=== PATIENT | female | born 1980 | race Caucasian/White ===

== ENCOUNTER 2017-12-01 14:08 | Inpatient (IN) ==
[2017-12-01] MEDS ORDERED: Ampicillin/Sulbactam 3,000 MG in 0.9 % Sodium Chloride Mini Bag 100 ML IVPB ONE (15:04)
--- NOTE | 2017-12-01 15:10 | Emergency Department Note ---
Disposition Clinical Impression: Osteomyelitis of finger of right hand, Cellulitis of finger of right hand, Tobacco abuse Disposition: Admitted As Inpatient Condition: Good Time of Disposition: 15:13 Extremity Problem HPI - General Chief complaint: ED Extremity Problem,Nontraumatic Stated complaint: Right index finger injury Time Seen by Provider: 12/01/17 14:31 Source: patient Limitations: no limitations Nursing Notes Reviewed: Yes Vital Signs Reviewed: Yes - History of Present Illness HPI Narrative: 36-year-old female presents ED because of pain to her right index finger. Heart 13 days ago she was bitten by her pet cat on the tip of the index finger. She was prescribed antibiotics but did not get them filled claiming inadequate resources. She later presented to the emergency department and had purulent drainage expressed from here. She was referred to orthopedics and saw Dr. Khanna in the office today. X-rays were suggestive of osteomyelitis. He recommended she be admitted to the hospital on IV antibiotics with PICC line insertion and may need to have surgical debridement. Pt Subjective Complaint: extremity pain Onset (ago): day(s) Consistency: constant Injury Location: right Pain Scale: 8 Quality: aching Radiation: distal Improves with: nothing Worsens with: nothing Associated symptoms: Reports: denies other symptoms - Related Data Home Medications Medication Instructions Recorded Confirmed Clindamycin HCl [Cleocin HCl] 300 mg PO Q8H 12/01/17 12/01/17 HYDROcodone/Acet 5/325 mg [[place] 1 tab PO Q6H PRN 12/01/17 12/01/17 5-325 mg] Allergies Allergy/AdvReac Type Severity Reaction Status Date / Time No Known Allergies Allergy Verified 12/01/17 15:05 All systems ED: reviewed and negative except as stated. Review of Systems: As Per HPI Past Medical History - Past Medical History Attestation: Yes The following information was validated with the patient. Medical history: Reports: HIV/AIDS Psychiatric history: Reports: no psych history - Social History Smoking Status: Current every day smoker Physical Exam - General Limitations: no limitations General appearance: alert, in no apparent distress - Head Head exam: atraumatic, normocephalic - Eye Eye exam: Present: normal appearance - ENT ENT exam: normal exam - Neck Neck exam: Present: normal inspection, full ROM - Chest Chest inspection: Present: normal inspection - Respiratory Respiratory exam: Present: normal lung sounds bilaterally - Cardiovascular Cardiovascular exam: Present: regular rate, normal rhythm - Extremities Exam Extremities exam: Present: other (Erythema and tenderness of the distal phalange of the right index finger. Skin overlying the volar pad is black.) - Back Exam Back exam: Absent: tenderness - Neurological Exam Neurological exam: Present: alert, oriented X3 - Psychiatric Psychiatric exam: Present: normal affect - Skin Skin exam: Present: warm, dry Course - Reevaluation(s) Reevaluation #1: A PICC line will be inserted, started on IV Unasyn and admitted. alecia Grande for clarification. Time: 15:12 Reevaluation #2: Discussed patient with Dr. Khanna, he does not plan on doing surgical debridement. Due to patient's insurance situation, she is unable to get iv abx outpatient. Patient was accepted by Dr. Aguirre, he requested to have CBC , BMP, ESR, CRP. Time: 15:53 Vital Signs Temperature 98.1 F 12/01/17 14:11 Pulse Rate 78 12/01/17 14:11 Respiratory Rate 18 12/01/17 14:11 Blood Pressure 110/72 12/01/17 14:11 O2 Sat by Pulse Oximetry 98 12/01/17 14:11 Temperature 98.7 F 12/01/17 17:27 Pulse Rate 56 12/01/17 17:27 Respiratory Rate 14 12/01/17 17:27 Blood Pressure 117/75 12/01/17 17:27 O2 Sat by Pulse Oximetry 98 12/01/17 17:27 Oxygen Delivery Oxygen Delivery Room Air Extremity Problem, Nontraumati - Lab Data Result diagrams: 12/01/17 15:40 12/01/17 15:21 Lab Results 12/01/17 12/01/17 12/01/17 Range/Units 15:21 15:40 15:40 WBC 7.4 (4.3-11.1) K/mcL RBC 5.23 H (3.82-4.97) M/mcL Hgb 15.8 H (11.5-15.4) g/dL Hct 47.7 H (35.3-44.9) % MCV 91.2 (83.0-100.0) fL MCH 30.2 (28.0-33.3) pg MCHC 33.1 (31.6-35.5) g/dL RDW 12.1 (11.5-14.5) % Plt Count 192 (140-400) K/mcL MPV 10.8 (9.4-12.4) fL Immature Gran % 0.5 (0-4) % Seg Neutrophils % 56.6 % Lymphocytes % 34.9 % Monocytes % 6.0 % Eosinophils % 1.6 % Basophils % 0.4 % Neutrophils # 4.2 (1.6-8.9) K/mcL Lymphocytes # 2.6 (0.6-4.6) K/mcL Monocytes # 0.4 (0.0-1.3) K/mcL Eosinophils # 0.1 (0.0-0.6) K/mcL Basophils # 0.0 (0.0-0.2) K/mcL ESR 8 (0-15) mm/hr Sodium 137 (136-145) mEq/L Potassium 3.5 (3.5-5.1) mEq/L Chloride 103 (98-107) mEq/L Carbon Dioxide 29 (23-29) mEq/L BUN 9 (6-20) mg/dL Creatinine 0.84 (0.60-1.20) mg/dL Est GFR ( Amer) > 60 (> 60) Est GFR (Non-Af Amer) > 60 (> 60) BUN/Creatinine Ratio 11 (6-26) Glucose 96 (70-105) mg/dL Calculated Osmolality 283 (280-300) Calcium 9.9 (8.6-10.3) mg/dL C-Reactive Protein < 5 (Less than 10) mg/L
[2017-12-01 15:50] LABS: Basophils % 0.4 %; Eosinophils # 0.1 K/mcL (0.0-0.6); Eosinophils % 1.6 %; Hematocrit 47.7 % (35.3-44.9); Hemoglobin 15.8 g/dL (11.5-15.4); Immature Granulocytes % 0.5 % (0-4); Lymphocytes # 2.6 K/mcL (0.6-4.6); Lymphocytes % 34.9 %; Mean Corpuscular HGB Conc 33.1 g/dL (31.6-35.5); Mean Corpuscular Hemoglobin 30.2 pg (28.0-33.3); Mean Corpuscular Volume 91.2 fL (83.0-100.0); Mean Platelet Volume 10.8 fL (9.4-12.4); Monocytes # 0.4 K/mcL (0.0-1.3); Neutrophils # 4.2 K/mcL (1.6-8.9); Platelet Count 192 K/mcL (140-400); Red Blood Count 5.23 M/mcL (3.82-4.97); Red Cell Distribution Width 12.1 % (11.5-14.5); Segmented Neutrophils % 56.6 %
[2017-12-01] MEDS ORDERED: Naloxone 0.4 MG/ML INJ IVP PRN (15:52)
[2017-12-01 16:12] LABS: BUN/Creatinine Ratio 11 (6-26); Blood Urea Nitrogen 9 mg/dL (6-20); C-Reactive Protein < 5 mg/L (Less than 10); Calcium 9.9 mg/dL (8.6-10.3); Carbon Dioxide 29 mEq/L (23-29); Chloride 103 mEq/L (98-107); Glucose 96 mg/dL (70-105); Osmolality,Calculated 283 (280-300); Potassium 3.5 mEq/L (3.5-5.1); Sodium 137 mEq/L (136-145); eGFR For African Americans > 60 (> 60); eGFR For Non-African Americans > 60 (> 60)
[2017-12-01] MEDS ORDERED: Ondansetron 4 MG/2 ML VIAL IVP PRN (16:35)
[2017-12-01] MEDS ORDERED: Acetaminophen 325 MG TABLET PO PRN (16:35)
--- NOTE | 2017-12-01 16:47 | Internal Med History&Physical ---
Date of Encounter: 12/01/17 Time of Encounter: 16:20 Assessment and Plan (1) Osteomyelitis of finger of right hand Current visit: Yes Status: Acute Admit the pt into Med Surg Reviewed X ray report Showed Rt 2nd distal phalangeal tuft fracture and concerning for osteomyelitis Started on empirical abx Unasyn Blood cx drawn ESR and CRP - WNL ID consulted will obtain records from PCP office - ?? Wound cx Talked to Ortho Dr. Grande - will see the pt later today continue symptomatic and supportive care (2) Cellulitis of finger of right hand Current visit: Yes Status: Acute (3) Anxiety Current visit: Yes Status: Acute on Ativan PRN (4) Tobacco abuse Current visit: Yes Status: Acute counseled to quit on nicotine patch Internal Medicine - H&P: HPI Chief complaint: Rt index finger osteomyelitis Admitted From: Emergency Dept Plans for Post Hospital Care: Home History of present illness: Ms. Canales is a 36 year old female with no known significant past medical history who was bitten by On her right index finger on 11/17/2017 since and patient noticed worsening right index finger swelling, tenderness and plus collection. Patient was admitted at [facility] last week treated with IV antibiotic and send her home on oral antibiotic. Also patient was seen by her primary care doctor who tried to do I & D of the right index finger almost 3 times, however her right index finger swelling, edema and tenderness seems to be worsening. Now she is not able to move or do any range of motion of the right index finger. PCP did refer the patient to orthopedics Dr. Grande, who did x-ray in his office showed right index finger osteomyelitis. He did send the patient to ER for PICC line placement and long-term IV antibiotic. Past Med Surg Social Fam HX - Past Medical History Medical history: HIV/AIDS Psychiatric history: no psych history - Past Surgical History Surgical History: no surgical history - Social History Smoking Status: Current every day smoker - Additional Family History Additional family history: Family hsitory reviewed and non contribuitory to current problem. Internal Medicine - H&P: Meds Clindamycin HCl [Cleocin HCl] 300 mg PO Q8H 12/01/17 [History] HYDROcodone/Acet 5/325 mg [[place] 5-325 mg] 1 tab PO Q6H PRN 12/01/17 [History] 3 Allergy/AdvReac Type Severity Reaction Status Date / Time No Known Allergies Allergy Verified 12/01/17 15:05 All Systems PM: A 10-system review of systems was performed and is negative for pertinent findings except as documented above in the HPI. Review of systems: All the systems are reviewed everything is benign except the systems and symptoms I mentioned in the history of present illness - Constitutional Vitals: Temp Pulse Resp BP Pulse Ox 98.1 F 80 14 119/80 97 12/01/17 14:11 12/01/17 16:14 12/01/17 16:14 12/01/17 16:14 12/01/17 16:14 General appearance: Present: A&O X 3, answers questions appropriately - Head Head exam: Present: atraumatic, normal inspection - Neck Neck exam general surgery: Present: supple - Respiratory Respiratory exam: Present: decreased breath sounds. Absent: rales, respiratory distress, rhonchi, wheezes - Cardiovascular Cardiovascular exam: Present: RRR, +S1, +S2. Absent: tachycardia - GI/Abdominal GI/Abdominal exam: Present: normal bowel sounds, soft. Absent: rebound, rigid, tenderness - Extremities Exam Extremities exam: Absent: calf tenderness, pedal edema, tenderness - Back Exam Back exam: Absent: CVA tenderness (L), CVA tenderness (R) - Neurological Exam Neurological exam: Present: alert, oriented X3 - Psychiatric Psychiatric exam: Present: normal affect, normal mood - Skin Skin exam: Absent: rash Internal Med - H&P Results - Labs CBC & Chem 7: 12/01/17 15:40 12/01/17 15:21
[2017-12-01] MEDS ORDERED: Ampicillin/Sulbactam 3,000 MG in 0.9 % Sodium Chloride Mini Bag 100 ML IVPB SCH (18:00)
[2017-12-01] MEDS: *HR* OxyCODONE/APAP 5/325 TABLET PO PRN (20:21)
[2017-12-02] MEDS: Ampicillin/Sulbactam 3,000 MG in 0.9 % Sodium Chloride Mini Bag 100 ML IVPB SCH ×3 (00:47→12:26)
[2017-12-02] MEDS: *HR* LORazepam 0.5 MG TABLET PO PRN ×2 (00:47→08:10)
[2017-12-02 03:45] LABS: Basophils # 0.1 K/mcL (0.0-0.2); Basophils % 0.8 %; Eosinophils # 0.2 K/mcL (0.0-0.6); Eosinophils % 3.3 %; Hematocrit 42.3 % (35.3-44.9); Hemoglobin 13.8 g/dL (11.5-15.4); Immature Granulocytes % 0.5 % (0-4); Lymphocytes # 3.5 K/mcL (0.6-4.6); Mean Corpuscular HGB Conc 32.6 g/dL (31.6-35.5); Mean Platelet Volume 11.5 fL (9.4-12.4); Monocytes # 0.4 K/mcL (0.0-1.3); Monocytes % 6.5 %; Neutrophils # 2.4 K/mcL (1.6-8.9); Platelet Count 184 K/mcL (140-400); Red Cell Distribution Width 12.3 % (11.5-14.5); Segmented Neutrophils % 35.9 %
[2017-12-02] MEDS: *HR* Enoxaparin 40 MG/0.4 ML SYRINGE SQ SCH (06:52)
--- NOTE | 2017-12-02 08:42 | Orthopedic Consult Note ---
<Catrina Victor Sanjay - Last Filed: 12/02/17 16:33> Date of Encounter: 12/02/17 Time of Encounter: 08:00 Assessment and Plan (1) Osteomyelitis of finger of right hand Current Visit: Yes Status: Acute Continue IV abx for osteomyelitis. ID consulted for further recommendations. No surgical intervention planned at this time. Elevate hand, ROM as tolerated. Pain control per hospitalist. Patient did note to me percocet made her drowsy and would like to switch to norco as the side effects are less. Office working to collect records from [facility] (original xrays on 11/21/17) and PCP Dr. Florez records who performed I&D in office. Patient denies any cultures being collected but will obtain records to confirm. UPDATE 16:15 - Dr. Grande discussed case with Dr. Oseguera who recommends I&D of finger with injection of rabies immune gamma globulin directly into finger site. I did discuss this procedure with the patient along with r/b/a. All questions were answered and patient expressed understanding. Consent was obtained, given to nurse Yuliet. Plan for procedure tomorrow afternoon. She is to be NPO after midnight tonight. History of Present Illness Chief complaint: right index finger pain/cat bite HPI: Ms. Canales is a 36 year old female who presented to [facility] yesterday with Dr. Grande for follow up after cat bite and was then sent to ER to be admitted for IV abx. Patient states she found a stray cat and took it home as it looked very sick/skinny and have possibly fleas. She tried to give the cat a bath and feed it bologna when the cat bit down on her finger and would not let go. She had to pry its mouth open to release her finger. This happened on 11/17/17. She went to [facility] on 11/19/17 where she was prescribed augmentin. Patient did not fill this as she states she could not afford it. She returned to same ER on 11/21/17 for worsening redness and swelling to finger and appears from ER records that she received a dose of unasyn and was able to get the augmentin filled around that time. She denies receiving any vaccines while in the ER. She then followed up with her PCP, Dr. Florez on 11/23/17 where he lanced the finger tip with a needle and apparently expressed much purulent fluid but did not obtain cultures at that time. Patient followed up again on 11/25/17 and was switched to clindamycin at that time but due to not improving was referred to Dr. Grande. Today, patient continues to c/o redness and swelling to distal index finger that she states has improved overnight after receiving IV abx. She states she has a little improvement in her motion at this time as well. Continues to have numbness and tingling to distal index finger. Denies any N/V, fever, chills, chest pain, SOB. Patient is right hand dominant. She does work at [employer]. Past Med Surg Social Fam HX - Past Medical History Medical history: HIV/AIDS Psychiatric history: no psych history - Past Surgical History Surgical History: no surgical history - Social History Smoking Status: Current every day smoker Packs per day: 1 Smokeless Tobacco Status: No Alcohol use: none Drug use: marijuana Medications and Allergies Clindamycin HCl [Cleocin HCl] 300 mg PO Q8H 12/01/17 [History] HYDROcodone/Acet 5/325 mg [[place] 5-325 mg] 1 tab PO Q6H PRN 12/01/17 [History] 3 Allergy/AdvReac Type Severity Reaction Status Date / Time No Known Allergies Allergy Verified 12/01/17 15:05 All Systems Reviewed: The remainder of the systems were reviewed and are negative - Constitutional Constitutional: as per HPI - Cardiovascular Cardiovascular: as per HPI - Respiratory Respiratory: as per HPI - Musculoskeletal Musculoskeletal: as per HPI Physical Exam - Constitutional Vitals: Temp Pulse Resp BP Pulse Ox 98.1 F 63 16 105/64 95 12/02/17 06:43 12/02/17 06:43 12/02/17 06:43 12/02/17 06:43 12/02/17 06:43 - Wrist & Hand right Location of pain: index finger (moderate swelling and erythema to IF distal phalanx with what appears to be a small hematoma on volar surface. There are multiple punctate areas over hand which patient states used to be small blisters , no blisters noted on exam at this time, resolved to dorsal side IF over PIPJ. No open wounds noted. Significant tenderness to distal IF with decreased sensation as well, patient would not allow testing cap refill due to pain. Full ROM at MCPJ, minimal AROM at PIPJ and no AROM at DIPJ. Full PROM achieved with minimal pain. ) Results - Labs Result Diagrams: 12/02/17 00:57 12/01/17 15:21 Labs: H & H 12/02/17 Range/Units 00:57 Hgb 13.8 D (11.5-15.4) g/dL Hct 42.3 (35.3-44.9) % All other labs normal. - Diagnostic results Wrist/Hand x-ray: report reviewed, image reviewed Wrist/Hand MRI: report reviewed, image reviewed Consult Discharge Plan - Plan Referrals: Jayesh Florez MD [Primary Care Provider] - Lele Clay [Family Provider] - - Attending Attestation Case and plan of care discussed with supervising phycision who was available for all aspects of care. <Corwin Grande - Last Filed: 12/03/17 08:00> Date of Encounter: 12/03/17 Assessment and Plan (1) Osteomyelitis of finger of right hand Current Visit: Yes Status: Acute The injury x-rays from [facility] did not show a fracture of the right index finger distal phalanx tuft. Most likely the fragmentation is from osteomyelitis and not a fracture. History of Present Illness HPI: Ms. Canales is a 36 year old female All Systems Reviewed: The remainder of the systems were reviewed and are negative Physical Exam - Constitutional Vitals: Temp Pulse Resp BP Pulse Ox 97.8 F 63 14 98/56 95 12/03/17 06:33 12/03/17 06:33 12/03/17 06:33 12/03/17 06:33 12/03/17 06:33 Results - Labs Result Diagrams: 12/02/17 00:57 12/01/17 15:21 Labs: All other labs normal.
--- NOTE | 2017-12-02 10:10 | Internal Med Progress Note ---
Date of Encounter: 12/02/17 Time of Encounter: 10:09 - Subjective Interval history: Assessment and Plan (1) Osteomyelitis of finger of right hand Current visit: Yes Status: Acute Admit the pt into Med Surg Reviewed X ray report Showed Rt 2nd distal phalangeal tuft fracture and concerning for osteomyelitis Started on empirical abx Unasyn Blood cx drawn ESR and CRP - WNL ID consulted (2) Cellulitis of finger of right hand Current visit: Yes Status: Acute (3) Anxiety Current visit: Yes Status: Acute on Ativan PRN (4) Tobacco abuse Current visit: Yes Status: Acute counseled to quit on nicotine patch - Constitutional Vitals: Temp Pulse Resp BP Pulse Ox 98.1 F 63 16 105/64 95 12/02/17 06:43 12/02/17 06:43 12/02/17 06:43 12/02/17 06:43 12/02/17 06:43 General appearance: Present: A&O X 3, answers questions appropriately - Head Head exam: Present: atraumatic, normocephalic - Eye Eye exam: Present: PERRL, conjuntiva pink, sclera anicteric Pupils: Present: PERRL - Neck Neck exam general surgery: Present: supple, trachea midline. Absent: lymphadenopathy - Respiratory Respiratory exam: Present: CTAB. Absent: accessory muscle use, rales, rhonchi, wheezes - Cardiovascular Cardiovascular exam: Present: RRR, +S1, +S2. Absent: diastolic murmur, gallop, rubs, systolic murmur - GI/Abdominal GI/Abdominal exam: Present: normal bowel sounds, soft, no peritoneal signs. Absent: distended, tenderness - Extremities Exam Extremities exam: Present: warm, radial pulses palpable and symmetrical. Absent : calf tenderness, cyanotic, pedal edema - Neurological Exam Neurological exam: Present: CN II-XII intact, oriented X3, no focal deficits. Absent: pronater drift, facial droop, speech deficit - Skin Skin exam: Present: dry, intact Internal Medicine: Result - Labs CBC & Chem 7: 12/02/17 00:57 12/01/17 15:21 Labs: Short CBC 12/02/17 Range/Units 00:57 WBC 6.6 (4.3-11.1) K/mcL Hgb 13.8 D (11.5-15.4) g/dL Hct 42.3 (35.3-44.9) % Plt Count 184 (140-400) K/mcL Neutrophils # 2.4 (1.6-8.9) K/mcL - Impressions Impressions Hand MRI 12/01/17 18:21 IMPRESSION: 1. Soft tissue edema of the 2nd digit compatible with cellulitis. There is also more focal T2 signal along the volar soft tissues of the distal 2nd digit which is worrisome for small abscess or phlegmon. This measures approximately 0.5 x 0.6 cm. Question blistering of the 2nd digit at the proximal interphalangeal joint. 2. Diffuse marrow signal changes of the distal phalanx of the 2nd digit. The patient does have known fracture of the distal phalanx of the 2nd digit is noted on radiograph. This makes evaluation for osteomyelitis suboptimal given the similar imaging characteristics of posttraumatic marrow signal change and osteomyelitis. Findings are highly suspicious for osteomyelitis given the surrounding soft tissue change. D/ / Sathish Guadarrama MD / Sathish Guadarrama MD Interpreting Provider: Sathish Guadarrama MD Consult Discharge Plan - Plan Referrals: Jayesh Florez MD [Primary Care Provider] - Lele Clay [Family Provider] -
--- NOTE | 2017-12-02 10:49 | Internal Med Progress Note ---
Date of Encounter: 12/02/17 Time of Encounter: 10:49 - Subjective Interval history: Assessment and Plan (1) Osteomyelitis of finger of right hand Current visit: Yes Status: Acute Admit the pt into Med Surg Reviewed X ray report Showed Rt 2nd distal phalangeal tuft fracture and concerning for osteomyelitis Started on empirical abx Unasyn Blood cx drawn ESR and CRP - WNL ID consulted will obtain records from PCP office - ?? Wound cx Talked to Ortho Dr. Grande - will see the pt later today continue symptomatic and supportive care (2) Cellulitis of finger of right hand Current visit: Yes Status: Acute (3) Anxiety Current visit: Yes Status: Acute on Ativan PRN (4) Tobacco abuse Current visit: Yes Status: Acute counseled to quit on nicotine patch - Constitutional Vitals: Temp Pulse Resp BP Pulse Ox 98.1 F 63 16 105/64 95 12/02/17 06:43 12/02/17 06:43 12/02/17 06:43 12/02/17 06:43 12/02/17 06:43 General appearance: Present: A&O X 3, answers questions appropriately Internal Medicine: Result - Labs CBC & Chem 7: 12/02/17 00:57 12/01/17 15:21 Labs: Short CBC 12/02/17 Range/Units 00:57 WBC 6.6 (4.3-11.1) K/mcL Hgb 13.8 D (11.5-15.4) g/dL Hct 42.3 (35.3-44.9) % Plt Count 184 (140-400) K/mcL Neutrophils # 2.4 (1.6-8.9) K/mcL - Impressions Impressions Hand MRI 12/01/17 18:21 IMPRESSION: 1. Soft tissue edema of the 2nd digit compatible with cellulitis. There is also more focal T2 signal along the volar soft tissues of the distal 2nd digit which is worrisome for small abscess or phlegmon. This measures approximately 0.5 x 0.6 cm. Question blistering of the 2nd digit at the proximal interphalangeal joint. 2. Diffuse marrow signal changes of the distal phalanx of the 2nd digit. The patient does have known fracture of the distal phalanx of the 2nd digit is noted on radiograph. This makes evaluation for osteomyelitis suboptimal given the similar imaging characteristics of posttraumatic marrow signal change and osteomyelitis. Findings are highly suspicious for osteomyelitis given the surrounding soft tissue change. D/ / Sathish Guadarrama MD / Sathish Guadarrama MD Interpreting Provider: Sathish Guadarrama MD Consult Discharge Plan - Plan Referrals: Jayesh Florez MD [Primary Care Provider] - Lele Clay [Family Provider] -
--- NOTE | 2017-12-02 11:54 | Infectious Disease Consult ---
Date of Encounter: 12/02/17 Time of Encounter: 11:51 Assessment and Plan (1) Cat bite of index finger Status: Acute Assessment and plan: Location: Right hand index finger. Stray cat, vaccination status unknown. Appeared ill: covered in bugs, weak, emaciated. Concern for rabies in the ill cat. Contact the health department. Will need to initiate Rabies protocol. Give rabies immunoglobulin 20 IU/kg in/ around the wound. Will see if the ortho team will consider operative I & D to get cultures and clean the wound bed and give rabies immunoglobulin directly into the wound bed. Give rabies vaccine (Rabavert) at deltoid site on days 0, 3, 7, and 14. Had Tetanus vaccine last year per the patient. Qualifiers: Encounter type: initial encounter Qualified Code(s): S61.258A - Open bite of other finger without damage to nail, initial encounter; W55.01XA - Bitten by cat, initial encounter; W55.01XA - Bitten by cat, initial encounter (2) Osteomyelitis of finger of right hand Status: Acute Assessment and plan: Location: Distal phalanx, second digit right hand. Causative organism unclear. Secondary to cat bite and delayed antibiotic administration. Failed outpatient oral antibiotics - Augmentin and Clindamycin. Status post bedside I & D per the patient's PCP with a large amount of pus. No cultures were obtained. Secondary to cat bite. MRI of the right hand shows soft tissue edema of the 2nd digit compatible with cellulitis and findings worrisome for a small abscess of phlegmon along the volar soft tissues of the distal 2nd digit as well as findings highly suspicious for osteomyelitis of the the distal phalanx of the 2nd digit. Ortho consulted and following. No surgical intervention planned at this point. ESR 8, CRP <5. Wound care and activity restrictions per the ortho team. Hold antibiotics for now in case the patient is taken to the OR. Will discuss with ortho as the patient may benefit from aggressive wound debridement given the extent/nature of the wound injury. If the patient is not taken to surgery, will re-start Unasyn 3grams IV Q6H. Duration of treatment depends on the clinical picture. Monitor renal function and dose-adjust antibiotics. (3) Cellulitis of finger of right hand Status: Acute Assessment and plan: Location: Right hand index finger. Causative organism unclear. Secondary to cat bite and delayed antibiotic administration. Antibiotic recommendations as above. (4) Tobacco abuse Status: Acute Infectious Disease HPI - Data of Consult Patient: new to practice Consult date: 12/02/17 Requesting Physician: Greg Friedman MD Primary Care Provider: Jayesh Florez MD Family Provider: Wali Provider - Consult Narrative Reason for consult: Right index finger osteomyelitis History of present illness: Ms. Canales is a 36 year old female with no significant past medical history. The patient was noted to the hospital December 01 for right index finger osteomyelitis. We are consulted December 02 for antibiotic recommendations for right index finger osteomyelitis. Briefly, the patient is a 36-year-old female with past medical history as stated above. The patient reports that on November 17 she sustained a cat bite from an ill-appearing stray cat that later to the right hand index finger. She states she subsequently developed severe pain, redness, and swelling and presented to a local emergency department for evaluation on November 19. She states she had an x-ray and was given a prescription for an oral antibiotic, but she was unable to get it filled because she cannot afford it. She states she went back to the emergency department 2 days later for reevaluation and was transferred to [facility]. She was given a dose of IV Unasyn and discharged home with instructions to get her previous prescription filled which she did. She states she saw her PCP in November 23 and had an incision and drainage of a large amount of pus from the finger. I called the patient's PCP office and no culture was obtained. She saw her PCP again on November 25 and he instructed her to start taking clindamycin in addition to the Augmentin. The patient states that she took 2 of the clindamycin, but stopped taking it and continue taking the Augmentin. She had been referred to Dr. Grande for evaluation and saw him yesterday and had an x-ray that showed acute traumatic minimally displaced right second digit distal phalangeal tuft fracture extending into the nail bed consistent with an open fracture. Due to the patient's insurance, she was instructed to come to the emergency department for evaluation and to get IV antibiotics set up. Upon arrival to the ER, the patient was afebrile hemodynamically stable. Her white blood cell count is normal. Her ESR and CRP are normal. No cultures drawn that are pending 2 sets. Showed hand MRI that showed findings consistent with cellulitis of the second digit and a possible small abscess to the volar/distal aspect of the second digit. There are also findings concerning for osteoarthritis of the distal phalanx of the second digit. She was started on IV Unasyn and admitted to the hospital for further evaluation. Since admission, the patient has remained afebrile and hemodynamically stable. Her white blood cell count has remained normal. Orthopedics has evaluated the patient at this point do not have any plans to take the patient to surgery. During my exam today, the patient endorses a history as stated above. She denies any fevers or chills or rigors. She denies any headache or neck pain. She denies visual disturbances, weakness, or photophobia. She denies any congestion, earache, or sore throat. She denies any chest pain, shortness of breath, or cough. She denies any nausea, vomiting, diarrhea, or constipation. She denies any no lymphadenopathy. She denies abdominal pain, urinary complaints, or appetite changes. She denies pain except in the right hand index finger. She does report that she was having a small amount of pain in the right hand long finger prior to admission, but this seems to have improved. She states that since being on IV antibiotics the pain is the same, but she does notice an improvement in the redness and swelling. She states her range of motion is very limited due to pain and she is having some numbness and tingling to the distal aspect of the effected finger. She denies any oral thrush or any other skin lesions. The patient lives at home with her significant other in [place], [place]. She works at a [employer], but has been unable to work since the injury occurred. She smokes about pack of cigarettes per day. She smokes marijuana daily, but denies any other drug use. She denies a past medical history of chronic infectious issues. She denies any alcohol use. Denies any recent travel. She states the cat was not hers and was covered in some kind of bugs and was emaciated and very weak. She states once the cat bit down on her finger, it would not let go and she had to pry the teeth out of her skin. CC: Greg Friedman MD Past Med Surg Social Fam HX - Past Medical History Attestation: Yes The following information was validated with the patient. Source: old records reviewed, nursing notes reviewed Medical history: no medical history Psychiatric history: no psych history - Past Surgical History Surgical History: no surgical history - Social History Smoking Status: Current every day smoker Packs per day: 1 Smokeless Tobacco Status: No Alcohol use: none Drug use: marijuana Occupational status: employed ([employer]) Current living situation: Home - Independent Activity Level: Independent ambulation Recent Out of Country Travel Within the Last 8 Weeks: No Exposure or Possible Exposure to Illness During Travel: No Infectious Disease-CN:Meds Clindamycin HCl [Cleocin HCl] 300 mg PO Q8H 12/01/17 [History] HYDROcodone/Acet 5/325 mg [[place] 5-325 mg] 1 tab PO Q6H PRN 12/01/17 [History] 3 Allergy/AdvReac Type Severity Reaction Status Date / Time No Known Allergies Allergy Verified 12/01/17 15:05 All systems: reviewed and no additional remarkable complaints except as stated Exam - Constitutional Vitals: Temp Pulse Resp BP Pulse Ox 97.9 F 61 16 104/68 99 12/02/17 11:48 12/02/17 11:48 12/02/17 11:48 12/02/17 11:48 12/02/17 11:48 General appearance: average body habitus, cooperative, no acute distress - Head Head exam: Present: atraumatic, normal inspection, normocephalic - Eye Eye exam: Present: EOMI, normal appearance, PERRL Pupils: Present: normal accommodation - ENT ENT exam: Present: mucous membranes moist - Neck Neck exam: Present: normal inspection - Respiratory Respiratory exam: Present: CTAB. Absent: rales, respiratory distress, rhonchi, wheezes - Cardiovascular Cardiovascular exam: Present: RRR, +S1, +S2 - GI/Abdominal GI/Abdominal exam: Present: normal bowel sounds, soft. Absent: distended, tenderness - Extremities Exam Extremities exam: Present: tenderness (Right index finger). Absent: pedal edema Additional comments: Right index finger edematous with mild erythema noted to the distal portion of the finger. ROM limited due to pain. Edema noted. Necrosis noted to the pad of the right index finger. Tenderness noted with palpation. - Neurological Exam Neurological exam: Present: alert, oriented X3, no focal deficits - Psychiatric Psychiatric exam: Present: normal affect, normal mood - Skin Skin exam: Present: dry, intact, normal color, warm Infectious Disease CN: Results - Labs CBC & Chem 7: 12/02/17 00:57 12/01/17 15:21 Consult Discharge Plan - Plan Referrals: Jayesh Florez MD [Primary Care Provider] - Lele Clay [Family Provider] - - Attending Attestation I examined this patient and my medical decision-making was reviewed with the Resident Physician. I agree with the documented findings, disposition and treatment plan as described except to the extent set forth below. Patient states that she was bitten by her cat on the index finger on 11/17/2017. ~ patient started having pain and swelling.~ patient was seen at outlying facility where she received IV antibiotics and discharged home on Augmentin. Patient had an I&D done at PCPs office and clindamycin was added..~ Patients symptoms didnt improve and came back to the ED. On further questioning, patient tells me that this is a referral That she that was very cachectic and almost that. Patient had bugs on her. Patient apparently stated that the cat was stiff and unresponsive. She tried to feed the cat and she that her and she would not let go. The patient had 2 remove her finger from her jaws by force tearing the skin. ~ /since admission, no fever, no leukocytosis, no tachycardia.~ normal inflammatory markers.~ An MRI was done and it revealed soft tissue edema of the second digit compatible with cellulitis.~ There was also concern for small abscess or phlegom 0.5 x 0.6 cm.~ also concern for osteomytlisis even though hard to distinguish based on MRI finding in the presence of post traumatic marrow signal change.~ patient was started on unasyn and we and ortho were consulted. At this point I am concerned for possible exposure to animal with rabies. We will notify the health department. I will start the rabies immunoglobulin. We will discuss with the surgery team to see if they can I&D and give the rabies immunoglobulin are on the wound. Patient did receive the tetanus shot last year because she stepped on nail. We will hold Unasyn until surgerys recommendation to see that you take for I&D today cultures. If no surgical intervention then we will restart Unasyn and recommended PICC line placement. Monitor labs and for drug toxicity. discussed with health department and left message with [facility] called Dr. Khanna to discuss case, he's scrubbed in for now, awaiting his response
[2017-12-02] MEDS ORDERED: Rabies Vaccine 2.5 UNIT VIAL IM ONE (15:40)
[2017-12-02] MEDS ORDERED: RABIES IMMUNE GLOBULIN IM SCH (15:45)
[2017-12-02] MEDS: *HR* OxyCODONE/APAP 5/325 TABLET PO PRN (19:53)
[2017-12-03] MEDS: *HR* OxyCODONE/APAP 5/325 TABLET PO PRN ×2 (05:33→18:05)
[2017-12-03] MEDS: *HR* Enoxaparin 40 MG/0.4 ML SYRINGE SQ SCH (05:34)
[2017-12-03] MEDS ORDERED: ALPRAZolam 0.5 MG TABLET PO ONE (08:40)
--- NOTE | 2017-12-03 10:29 | Infectious Disease Progress No ---
Date of Encounter: 12/03/17 Time of Encounter: 10:26 - Assessment and Plan (1) Cat bite of index finger Current Visit: Yes Status: Acute Location: Right hand index finger. Stray cat, vaccination status unknown. Appeared ill: covered in bugs, weak, emaciated. Concern for rabies in the ill cat. Contact the health department. Spoke with Gloria Orlando at the [facility] who states that she does not have any record of the animal bite. Nursing filled out another bite form and faxed it per her request yesterday. Will need to initiate Rabies protocol. Give rabies immunoglobulin 20 IU/kg in/ around the wound. Will be given is surgery today. Give rabies vaccine (Rabavert) at deltoid site on days 0, 3, 7, and 14. Day 0 dose given 12/02/17. Next doses 12/05/17, 12/09/17, and 12/16/17. Had Tetanus vaccine last year per the patient. Qualifiers: Encounter type: initial encounter Qualified Code(s): S61.258A - Open bite of other finger without damage to nail, initial encounter; W55.01XA - Bitten by cat, initial encounter; W55.01XA - Bitten by cat, initial encounter (2) Osteomyelitis of finger of right hand Current Visit: Yes Status: Acute Location: Distal phalanx, second digit right hand. Causative organism unclear. Secondary to cat bite and delayed antibiotic administration. Failed outpatient oral antibiotics - Augmentin and Clindamycin. Status post bedside I & D per the patient's PCP with a large amount of pus. No cultures were obtained. Secondary to cat bite. MRI of the right hand shows soft tissue edema of the 2nd digit compatible with cellulitis and findings worrisome for a small abscess of phlegmon along the volar soft tissues of the distal 2nd digit as well as findings highly suspicious for osteomyelitis of the the distal phalanx of the 2nd digit. Ortho consulted and following. No surgical intervention planned at this point. ESR 8, CRP <5. Wound care and activity restrictions per the ortho team. Continue to hold antibiotics until after surgery, then re-start Unasyn 3 grams IV Q6H. Duration of treatment depends on the clinical picture. Monitor renal function and dose-adjust antibiotics. (3) Cellulitis of finger of right hand Current Visit: Yes Status: Acute Location: Right hand index finger. Causative organism unclear. Secondary to cat bite and delayed antibiotic administration. Antibiotic recommendations as above. (4) Tobacco abuse Current Visit: Yes Status: Acute - Subjective Interval history: Patient seen and examined. No acute events noted overnight. Patient being taken to the OR later today for incision and debridement of the right index finger. States her finger range of motion is a little bit better today. Denies any fevers or chills or rigors. Denies any chest pain, shortness of breath, or cough. Denies any nausea, vomiting, diarrhea, or constipation. States she does not have much of an appetite this morning, but states she normally does not eat breakfast. States she ate a good dinner last night. Denies any abdominal pain, urinary complaints, or appetite changes. Denies pain except as previously mentioned. Denies any oral thrush or new skin lesions. Infect Dis PN-Objective Data - Labs CBC & Chem 7: 12/02/17 00:57 12/01/17 15:21 Labs: Laboratory Results - last 24 hr 12/03/17 08:30 Urine Test Negative Cultures: Serology 12/03/17 Range/Units 08:30 Urine Test Negative (Negative) Exam - Constitutional Vitals: Temp Pulse Resp BP Pulse Ox 97.8 F 63 14 96/72 95 12/03/17 06:33 12/03/17 06:33 12/03/17 06:33 12/03/17 08:29 12/03/17 06:33 General appearance: average body habitus, cooperative, no acute distress - Head Head exam: Present: atraumatic, normal inspection, normocephalic - Eye Eye exam: Present: EOMI, normal appearance, PERRL Pupils: Present: normal accommodation - ENT ENT exam: Present: mucous membranes moist - Neck Neck exam: Present: normal inspection - Respiratory Respiratory exam: Present: CTAB. Absent: rales, respiratory distress, rhonchi, wheezes - Cardiovascular Cardiovascular exam: Present: RRR, +S1, +S2 - GI/Abdominal GI/Abdominal exam: Present: normal bowel sounds, soft. Absent: distended, tenderness - Extremities Exam Additional comments: Right index finger remains edematous, but erythema improved. Necrosis noted to the pad of the fingertip is unchanged. - Neurological Exam Neurological exam: Present: alert, oriented X3, no focal deficits - Psychiatric Psychiatric exam: Present: normal affect, normal mood - Skin Skin exam: Present: dry, intact, normal color, warm Consult Discharge Plan - Plan Referrals: Jayesh Florez MD [Primary Care Provider] - Lele Clay [Family Provider] - - Attending Attestation I examined this patient and my medical decision-making was reviewed with the Resident Physician. I agree with the documented findings, disposition and treatment plan as described except to the extent set forth below. d/w Dr. Grande, will obtain intra op cultures. pt continues to do well clinically. no symptoms concerning for rabies at this time
--- NOTE | 2017-12-03 11:49 | Anesthesia Evaluation PreOp ---
Date of Encounter: 12/03/17 Time of Encounter: 11:47 - Past History Planned Operation: Right Index Finger I&D Cardiac History: Denies any Significant Hx Pulmonary History: Smoker POT BUILDER History: Other (Anxiety) Other Medical History: Other (HIV/AIDS) Anesthesia History: No Prior Anesthetic Complications : No Test: Negative (12/03/2017) Alcohol Use: none Drug use: marijuana Medications and Allergies Clindamycin HCl [Cleocin HCl] 300 mg PO Q8H 12/01/17 [History] HYDROcodone/Acet 5/325 mg [[place] 5-325 mg] 1 tab PO Q6H PRN 12/01/17 [History] 3 Allergy/AdvReac Type Severity Reaction Status Date / Time No Known Allergies Allergy Verified 12/01/17 15:05 - Meds/Allergy Pre-op Review Medications Reviewed: Yes Allergies Reviewed: Yes Beta Blockers on Current Med List: No Anesthesia Results - Labs 12/02/17 00:57 12/01/17 15:21 Laboratory Tests 12/03/17 08:30 Urine Test Negative Anesthesia Exam Vital Signs/O2 Sat, Most Current Temp Pulse Resp BP Pulse Ox 98.5 F 78 16 109/70 98 12/03/17 11:21 12/03/17 11:21 12/03/17 11:21 12/03/17 11:21 12/03/17 11:21 NPO (# of Hours): > 8 hrs Pain Scale: 0 Pain Scale Used: Numeric (1 - 10) - HEENT Pupil (Motor): Pupils equal, EOMI Mallampati: II Teeth: Missing, Poor dentition Oral Opening: Greater than 3 - POT BUILDER LOC: Oriented POT BUILDER Motor: Normal RUE, Normal LUE, Normal RLE, Normal LLE, Normal Face POT BUILDER Sensory: Normal: RUE, LUE, RLE, LLE, Face - Cardiac Rhythm: Regular Murmur: None JVD: No Carotid Bruit: No - Pulmonary Breath Sounds: bilateral Clear Respiratory Effort: Symmetrical Anesthesia Assess/Plan ASA Score: 3 Modified Lexi Scale for Level of Consciousness: Cooperative, oriented, and tranquil Anesthetic Plan: General Autologous Blood: Yes Monitoring Plan: Standard Monitors Recovery Plan: PACU
[2017-12-03] MEDS ORDERED: Ampicillin/Sulbactam 3,000 MG in 0.9 % Sodium Chloride Mini Bag 100 ML IVPB ONE (12:43)
[2017-12-03] MEDS ORDERED: *HR* Propofol 200 MG/20 ML VIAL IVP ONE (13:00)
[2017-12-03] MEDS ORDERED: *HR* FentaNYL (PF) 100 MCG/2 ML VIAL ONE (13:00)
[2017-12-03] MEDS ORDERED: Lidocaine -MPF 2% 2 ML VIAL ONE (13:01)
[2017-12-03] MEDS ORDERED: Ondansetron 4 MG/2 ML VIAL ONE (13:22)
--- NOTE | 2017-12-03 14:51 | Anesthesia Evaluation Post Op ---
Date of Encounter: 12/03/17 Time of Encounter: 14:51 - Vital Signs Vital Signs: Vital Signs/O2 Sat, Most Current Temp Pulse Resp BP Pulse Ox 98.6 F 66 16 123/77 97 12/03/17 14:47 12/03/17 14:47 12/03/17 14:47 12/03/17 14:47 12/03/17 14:47 - Lungs Lungs: Clear Ascult./Percussion - Airway Airway: Non-obstructed - Cardiovascular Regular Rate - Mental Status Mental Status: Alert & Oriented, Answers Appropriately - Pain Pain Scale: 0 Pain Scale used: Numeric (1 - 10) - Nausea Vomiting Nausea Vomiting: Not Present - Hydration Hydration: Ice chips, Has not voided - Discharge PostOp Status: Transfer Patient to floor
--- NOTE | 2017-12-03 14:55 | Operative Note ---
Date of procedure: 12/03/17 Pre-op diagnosis: Right index finger tip infection with possible osteomyelitis, possible rabi Post-op diagnosis: other (Right index finger distal phalanx tuft osteomyelitis, possible rabies exposure) Procedure: Right index finger, incision and drainage of distal phalanx acute osteomyelitis with injection of rabies immunoglobulin Anesthesia: BIRDIE Surgeon: Corwin Grande Was there an medical receptionist medical assistant present: No Estimated blood loss (cc): 3 Tourniquet Time (Minutes): 14 (Digital tourniquet) Specimen: Cultures to microbiology and specimen to pathology Condition: stable Disposition: PACU Procedure in Detail: Indications: The patient is a 36-year-old [id number] woman who was being treated for a right index finger cat bite without resolution augmentation. The patient was bitten by a femoral cat that soon after biting the patient. X-rays show bony destruction of the distal phalanx tuft consistent with osteomyelitis. There is also concern of possible rabies contamination. Procedure: The patient's IV antibiotics were held yesterday. She was brought back into the operating room and placed on the OR table in supine position with the affected right upper extremity on a hand table. A sign in was performed. The patient underwent general anesthesia, a tourniquet was placed on the right upper extremity close to the axilla, and the right upper extremity was prepped and draped in the usual sterile fashion. A timeout was performed. The right index finger was swollen and mildly erythematous. There was fluctuance on the radial side of the volar pulp where she had a dark eschar across the pulp space. There is also erythema on the dorsum of the DIP joint. A digital tourniquet was applied at the base of the finger and the time noted. A 2.5 cm midline longitudinal fishmouth incision was made on the radial side of the digit . The skin was sharply incised, and encountered purulent fluid, this was cultured for aerobic and anaerobic. The wound was copiously irrigated with normal saline. After adequate irrigation, the incision was extended subcutaneously and deeper into the pulp space. Skin flaps were elevated taking the neurovascular bundle on the volar side. There was significant soft tissue destruction with fat necrosis. The bone was probed at the base of the distal phalanx, There was significant bony of the distal tuft destruction, with pus surrounding the bone. This was also cultured. The patient's IV antibiotics were then administered. Mastoid dressing were used to scrape out the the bone. Small bone fragments removed were sent off to pathology. The dorsal skin was elevated proximally at the incision near the DIP joint, but there was no purulent fluid here. The digital tourniquet was removed and the length of time was noted. The wound was copiously irrigated with normal saline once again. A synovial rongeur was used to remove some of the necrotic fat. Patient was given a digital block using 10 mL of 0.5% Marcaine. Next, for rabies prophylaxis we are using the rabies immunoglobulin. 8 mL of the immunoglobulin, which corresponded to 1,200 international units was drawn up. 2 mL was used on the finger, injecting into the open wound and also injected more proximally also where there were multiple bite lee on the index finger, side of the thumb also on the distal palm. The incision was closed with 5-0 nylon simple sutures. A 1 cm length at the area of fluctuance was left open and packed with quarter-inch iodoform. Sterile dressings applied. The remaining 6 mL of the immunoglobulin was then injected, using a 23-gauge needle, into her left shoulder deltoid muscle. Infiltrating diffusely in several spots. The patient was then extubated and taken to the recovery room in stable condition. The patient will have the packing removed tomorrow and start local wound care with soap and water washes. She will resume the IV Unasyn.
[2017-12-03] MEDS ORDERED: Ondansetron 4 MG/2 ML VIAL IVP PRN (15:08)
[2017-12-03] MEDS ORDERED: Naloxone 0.4 MG/ML INJ IVP PRN (15:08)
[2017-12-03] MEDS ORDERED: Acetaminophen 325 MG TABLET PO PRN (15:08)
[2017-12-03] MEDS ORDERED: *HR* LORazepam 0.5 MG TABLET PO PRN (15:08)
[2017-12-03] MEDS: ALPRAZolam 0.5 MG TABLET PO PRN (15:50)
--- NOTE | 2017-12-03 17:10 | Internal Med Progress Note ---
Date of Encounter: 12/03/17 Time of Encounter: 17:10 - Subjective Interval history: Assessment and Plan (1) Osteomyelitis of finger of right hand Current visit: Yes Status: Acute X ray report showed Rt 2nd distal phalangeal tuft fracture and concerning for osteomyelitis ID directing antibiotic therapy. Unasyn started at admission Blood and wound cultures ESR and CRP Surgery today Pain well controlled (2) Cat bite with concern for Rabbies Receiving rabbies IG (3) Anxiety Ativan PRN (4) Tobacco abuse Counseled to quit and on nicotine patch - Constitutional Vitals: Temp Pulse Resp BP Pulse Ox 98.8 F 66 15 103/68 96 12/03/17 17:02 12/03/17 17:02 12/03/17 17:02 12/03/17 17:02 12/03/17 17:02 General appearance: Present: A&O X 3, answers questions appropriately - Head Head exam: Present: atraumatic, normocephalic - Eye Eye exam: Present: normal appearance, PERRL, conjuntiva pink, sclera anicteric Pupils: Present: PERRL - Neck Neck exam general surgery: Present: supple, trachea midline. Absent: lymphadenopathy - Respiratory Respiratory exam: Present: CTAB. Absent: accessory muscle use, rales, rhonchi, wheezes - Cardiovascular Cardiovascular exam: Present: RRR, +S1, +S2. Absent: diastolic murmur, gallop, rubs, systolic murmur - GI/Abdominal GI/Abdominal exam: Present: normal bowel sounds, soft, no peritoneal signs. Absent: distended, tenderness - Extremities Exam Extremities exam: Present: warm, radial pulses palpable and symmetrical. Absent : calf tenderness, cyanotic, pedal edema - Neurological Exam Neurological exam: Present: CN II-XII intact, oriented X3, no focal deficits. Absent: pronater drift, facial droop, speech deficit - Skin Skin exam: Present: dry, intact Internal Medicine: Result - Labs CBC & Chem 7: 12/02/17 00:57 12/01/17 15:21 Consult Discharge Plan - Plan Referrals: Catrina Victor, PAC [Physician Handstitching Machine Collar Feller] - 12/08/17 11:30 am
[2017-12-03] MEDS: Ampicillin/Sulbactam 3,000 MG in 0.9 % Sodium Chloride Mini Bag 100 ML IVPB SCH (20:55)
[2017-12-04] MEDS: *HR* OxyCODONE/APAP 5/325 TABLET PO PRN ×3 (00:06→21:11)
[2017-12-04] MEDS: ALPRAZolam 0.5 MG TABLET PO PRN ×3 (00:06→17:37)
[2017-12-04 01:55] LABS: Basophils % 0.4 %; Eosinophils # 0.2 K/mcL (0.0-0.6); Eosinophils % 2.6 %; Hematocrit 39.8 % (35.3-44.9); Hemoglobin 13.4 g/dL (11.5-15.4); Immature Granulocytes % 0.3 % (0-4); Lymphocytes # 2.2 K/mcL (0.6-4.6); Mean Corpuscular HGB Conc 33.7 g/dL (31.6-35.5); Mean Corpuscular Hemoglobin 30.4 pg (28.0-33.3); Mean Corpuscular Volume 90.2 fL (83.0-100.0); Mean Platelet Volume 11.1 fL (9.4-12.4); Monocytes # 0.5 K/mcL (0.0-1.3); Monocytes % 6.6 %; Platelet Count 166 K/mcL (140-400); Red Blood Count 4.41 M/mcL (3.82-4.97); Segmented Neutrophils % 62.1 %
[2017-12-04 02:13] LABS: BUN/Creatinine Ratio 11 (6-26); Blood Urea Nitrogen 9 mg/dL (6-20); Calcium 8.8 mg/dL (8.6-10.3); Carbon Dioxide 25 mEq/L (23-29); Chloride 105 mEq/L (98-107); Glucose 126 mg/dL (70-105); Osmolality,Calculated 282 (280-300); Potassium 3.7 mEq/L (3.5-5.1); Sodium 136 mEq/L (136-145); eGFR For African Americans > 60 (> 60); eGFR For Non-African Americans > 60 (> 60)
[2017-12-04] MEDS: Ampicillin/Sulbactam 3,000 MG in 0.9 % Sodium Chloride Mini Bag 100 ML IVPB SCH ×4 (03:18→21:00)
[2017-12-04] MEDS: *HR* Enoxaparin 40 MG/0.4 ML SYRINGE SQ SCH (07:44)
[2017-12-04 08:55] LABS: BUN/Creatinine Ratio 8 (6-26); Blood Urea Nitrogen 6 mg/dL (6-20); Calcium 8.8 mg/dL (8.6-10.3); Carbon Dioxide 26 mEq/L (23-29); Chloride 107 mEq/L (98-107); Glucose 94 mg/dL (70-105); Osmolality,Calculated 281 (280-300); Potassium 3.8 mEq/L (3.5-5.1); Sodium 137 mEq/L (136-145); eGFR For African Americans > 60 (> 60); eGFR For Non-African Americans > 60 (> 60)
--- NOTE | 2017-12-04 12:32 | Orthopedics Progress Note ---
Date of Encounter: 12/04/17 Time of Encounter: 12:31 Subjective Interval history: S: Pain in right index finger after surgical debridement. Denies any numbness or tingling. No fevers or chills. O: AFVSS Packing in place and pulled No purulent drainage Minimal erythema at I&D site TTP over right distal index finger DNVI A: POD#1 s/p I&D of the right index finger P: Packing pulled this AM Continue IV Atbx per hospitalist service TID dressing changes with TID soaks Objective Vital signs: Vital Signs Temp Pulse Resp BP Pulse Ox 12/04/17 11:09 98.3 F 61 18 109/71 99 12/04/17 06:56 98.4 F 62 17 108/72 97 12/04/17 05:05 98.4 F 63 17 85/56 96 12/03/17 23:04 98.2 F 72 16 94/56 94 12/03/17 19:27 98.5 F 77 17 94/56 95 12/03/17 18:00 98.9 F 79 15 97/56 95 12/03/17 17:02 98.8 F 66 15 103/68 96 12/03/17 15:45 98 F 70 20 109/70 96 12/03/17 15:05 97.6 F 67 20 114/73 94 12/03/17 14:47 98.6 F 66 16 123/77 97 12/03/17 14:37 97.6 F 73 14 113/96 94 12/03/17 14:27 85 14 121/73 94 12/03/17 14:17 66 12 125/92 95 12/03/17 14:07 98.2 F 70 12 137/41 95 Intake and Output 12/03/17 12/04/17 12/04/17 23:59 07:59 15:59 Intake Total 900 / 900 1050 / 1050 Balance 900 / 900 1050 / 1050 Intake: IV Fluids 100 / 100 100 / 100 Unasyn 3,000 MG In 0.9 % Sodium 100 / 100 100 / 100 Chloride (Mini-Bag +) 100 ML @ 200 mls/hr IVPB Q6H [facility] Rx#: [id number] Oral 800 / 800 950 / 950 Other: Meal Breakfast Percent of Meal Consumed 50% # Voids 2 1 Weight 63.5 kg Patient Weight 12/04/17 23:59 Weight 63.5 kg - Labs CBC & BMP: 12/04/17 01:19 12/04/17 08:19 - VTE Documentation of Mechanical Device: Intermittent pneumatic compression device Consult Discharge Plan - Plan Referrals: Catrina Victor, PAC [Physician Lamp Wirer] - 12/08/17 11:30 am
--- NOTE | 2017-12-04 22:07 | Internal Med Progress Note ---
Date of Encounter: 12/04/17 Time of Encounter: 18:10 - Subjective Interval history: Assessment and Plan (1) Osteomyelitis of finger of right hand X ray report showed Rt 2nd distal phalangeal tuft fracture and concerning for osteomyelitis ID directing antibiotic therapy. Unasyn started at admission Blood and wound cultures ESR and CRP Surgery yesterday Pain well controlled (2) Cat bite with concern for Rabbies Receiving rabbies IG (3) Anxiety Ativan PRN (4) Tobacco abuse Counseled to quit and on nicotine patch - Constitutional Vitals: Temp Pulse Resp BP Pulse Ox 98.4 F 73 17 110/69 100 12/04/17 19:14 12/04/17 19:14 12/04/17 19:14 12/04/17 19:14 12/04/17 19:14 General appearance: Present: A&O X 3, answers questions appropriately - Head Head exam: Present: atraumatic, normocephalic - Eye Eye exam: Present: PERRL, conjuntiva pink, sclera anicteric Pupils: Present: PERRL - Neck Neck exam general surgery: Present: supple, trachea midline. Absent: lymphadenopathy - Respiratory Respiratory exam: Present: CTAB. Absent: accessory muscle use, rales, rhonchi, wheezes - Cardiovascular Cardiovascular exam: Present: RRR, +S1, +S2. Absent: diastolic murmur, gallop, rubs, systolic murmur - GI/Abdominal GI/Abdominal exam: Present: normal bowel sounds, soft, no peritoneal signs. Absent: distended, tenderness - Extremities Exam Extremities exam: Present: warm. Absent: calf tenderness, cyanotic, pedal edema - Neurological Exam Neurological exam: Present: CN II-XII intact, oriented X3, no focal deficits. Absent: pronater drift, facial droop, speech deficit - Psychiatric Psychiatric exam: Present: normal affect, normal mood - Skin Skin exam: Present: dry, intact Internal Medicine: Result - Labs CBC & Chem 7: 12/04/17 01:19 12/04/17 08:19 Labs: Short CBC 12/04/17 Range/Units 01:19 WBC 8.0 (4.3-11.1) K/mcL Hgb 13.4 (11.5-15.4) g/dL Hct 39.8 (35.3-44.9) % Plt Count 166 (140-400) K/mcL Neutrophils # 5.0 (1.6-8.9) K/mcL BMP 12/04/17 12/04/17 01:19 08:19 Sodium 136 137 Potassium 3.7 3.8 Chloride 105 107 Carbon Dioxide 25 26 BUN 9 6 Creatinine 0.79 0.77 Glucose 126 H 94 Calcium 8.8 8.8 - VTE Documentation of Mechanical Device: Intermittent pneumatic compression device Consult Discharge Plan - Plan Referrals: Catrina Victor, PAC [Physician Metallurgical Engineering Technician] - 12/08/17 11:30 am
[2017-12-05 04:01] LABS: Basophils % 0.4 %; Eosinophils # 0.2 K/mcL (0.0-0.6); Eosinophils % 4.3 %; Hematocrit 41.5 % (35.3-44.9); Hemoglobin 13.8 g/dL (11.5-15.4); Immature Granulocytes % 0.2 % (0-4); Lymphocytes # 2.9 K/mcL (0.6-4.6); Lymphocytes % 52.2 %; Mean Corpuscular HGB Conc 33.3 g/dL (31.6-35.5); Mean Corpuscular Hemoglobin 30.3 pg (28.0-33.3); Mean Platelet Volume 11.1 fL (9.4-12.4); Monocytes # 0.4 K/mcL (0.0-1.3); Monocytes % 7.5 %; Platelet Count 161 K/mcL (140-400); Red Blood Count 4.56 M/mcL (3.82-4.97); Segmented Neutrophils % 35.4 %
[2017-12-05 04:29] LABS: BUN/Creatinine Ratio 11 (6-26); Blood Urea Nitrogen 8 mg/dL (6-20); Calcium 8.8 mg/dL (8.6-10.3); Carbon Dioxide 26 mEq/L (23-29); Chloride 107 mEq/L (98-107); Glucose 97 mg/dL (70-105); Osmolality,Calculated 282 (280-300); Potassium 3.6 mEq/L (3.5-5.1); Sodium 137 mEq/L (136-145); eGFR For African Americans > 60 (> 60); eGFR For Non-African Americans > 60 (> 60)
[2017-12-05] MEDS: Ampicillin/Sulbactam 3,000 MG in 0.9 % Sodium Chloride Mini Bag 100 ML IVPB SCH ×3 (04:37→16:55)
[2017-12-05] MEDS: *HR* Enoxaparin 40 MG/0.4 ML SYRINGE SQ SCH (05:23)
[2017-12-05] MEDS ORDERED: Rabies Vaccine 2.5 UNIT VIAL IM ONE ×2 (10:45→12:17)
--- NOTE | 2017-12-05 10:57 | Orthopedics Progress Note ---
Date of Encounter: 12/05/17 Time of Encounter: 10:56 Subjective Interval history: S: Pain in right index finger significantly improved. Denies any numbness or tingling. No fevers or chills. O: AFVSS No purulent drainage Minimal erythema at I&D site TTP over right distal index finger, no tenderness proximally DNVI A: POD#2 s/p I&D of the right index finger P: Continue IV Atbx per hospitalist service TID dressing changes with TID soaks No plans for further surgery Objective Vital signs: Vital Signs Temp Pulse Resp BP Pulse Ox 12/05/17 06:44 98.5 F 55 14 100/51 94 12/05/17 05:05 97.5 F L 84 17 99/64 98 12/04/17 23:47 97.7 F 63 16 93/56 95 12/04/17 19:14 98.4 F 73 17 110/69 100 12/04/17 15:28 98.3 F 65 17 106/69 95 12/04/17 11:09 98.3 F 61 18 109/71 99 Intake and Output 12/04/17 12/05/17 12/05/17 22:59 07:59 15:59 Intake Total Balance Intake: IV Fluids Unasyn 3,000 MG In 0.9 % Sodium Chloride (Mini-Bag +) 100 ML @ 200 mls/hr IVPB Q6H [facility] Rx#: [id number] Oral Other: Meal Percent of Meal Consumed # Voids Weight Patient Weight 12/06/17 00:59 Weight 62.9 kg - Labs CBC & BMP: 12/05/17 03:02 12/05/17 03:02 - VTE Documentation of Mechanical Device: Intermittent pneumatic compression device Consult Discharge Plan - Plan Referrals: Catrina Victor, PAC [Physician Bulk Loader] - 12/08/17 11:30 am
[2017-12-05] MEDS: ALPRAZolam 0.5 MG TABLET PO PRN ×2 (11:17→20:21)
[2017-12-05] MEDS: *HR* OxyCODONE/APAP 5/325 TABLET PO PRN (11:44)
--- NOTE | 2017-12-05 17:18 | Internal Med Progress Note ---
Date of Encounter: 12/05/17 Time of Encounter: 16:55 - Subjective Interval history: Assessment and Plan (1) Osteomyelitis of finger of right hand X ray report showed Rt 2nd distal phalangeal tuft fracture and concerning for osteomyelitis ID directing antibiotic therapy. Unasyn started at admission Blood and wound cultures ESR and CRP S/P surgery Pain well controlled (2) Cat bite with concern for Rabbies Receiving rabbies shots (3) Anxiety Ativan PRN (4) Tobacco abuse Counseled to quit and on nicotine patch - Constitutional Vitals: Temp Pulse Resp BP Pulse Ox 98.6 F 74 16 102/68 97 12/05/17 15:41 12/05/17 15:41 12/05/17 15:41 12/05/17 15:41 12/05/17 15:41 General appearance: Present: A&O X 3, answers questions appropriately - Head Head exam: Present: atraumatic, normocephalic - Eye Eye exam: Present: PERRL, conjuntiva pink, sclera anicteric Pupils: Present: PERRL - Neck Neck exam general surgery: Present: supple, trachea midline. Absent: lymphadenopathy - Respiratory Respiratory exam: Present: CTAB. Absent: accessory muscle use, rales, rhonchi, wheezes - Cardiovascular Cardiovascular exam: Present: RRR, +S1, +S2. Absent: diastolic murmur, gallop, rubs, systolic murmur - GI/Abdominal GI/Abdominal exam: Present: normal bowel sounds, soft, no peritoneal signs. Absent: distended, tenderness - Extremities Exam Extremities exam: Present: warm. Absent: calf tenderness, cyanotic, pedal edema - Neurological Exam Neurological exam: Present: CN II-XII intact, oriented X3, no focal deficits. Absent: pronater drift, facial droop, speech deficit - Skin Skin exam: Present: dry, intact Internal Medicine: Result - Labs CBC & Chem 7: 12/05/17 03:02 12/05/17 03:02 Labs: Short CBC 12/05/17 Range/Units 03:02 WBC 5.6 (4.3-11.1) K/mcL Hgb 13.8 (11.5-15.4) g/dL Hct 41.5 (35.3-44.9) % Plt Count 161 (140-400) K/mcL Neutrophils # 2.0 (1.6-8.9) K/mcL BMP 12/05/17 03:02 Sodium 137 Potassium 3.6 Chloride 107 Carbon Dioxide 26 BUN 8 Creatinine 0.76 Glucose 97 Calcium 8.8 - VTE Documentation of Mechanical Device: Intermittent pneumatic compression device Consult Discharge Plan - Plan Referrals: Catrina Victor, PAC [Physician Occupational Therapist Assistants] - 12/08/17 11:30 am
[2017-12-06] MEDS: Ampicillin/Sulbactam 3,000 MG in 0.9 % Sodium Chloride Mini Bag 100 ML IVPB SCH ×5 (00:18→22:32)
[2017-12-06] MEDS: *HR* OxyCODONE/APAP 5/325 TABLET PO PRN ×2 (00:18→22:43)
[2017-12-06] MEDS: *HR* Enoxaparin 40 MG/0.4 ML SYRINGE SQ SCH (05:12)
[2017-12-06] MEDS: ALPRAZolam 0.5 MG TABLET PO PRN ×3 (05:16→23:52)
[2017-12-06 06:56] LABS: Basophils % 0.6 %; Eosinophils # 0.2 K/mcL (0.0-0.6); Eosinophils % 4.8 %; Hemoglobin 13.4 g/dL (11.5-15.4); Immature Granulocytes % 0.2 % (0-4); Lymphocytes # 2.2 K/mcL (0.6-4.6); Lymphocytes % 43.4 %; Mean Corpuscular HGB Conc 32.7 g/dL (31.6-35.5); Mean Corpuscular Hemoglobin 29.8 pg (28.0-33.3); Mean Corpuscular Volume 91.1 fL (83.0-100.0); Mean Platelet Volume 10.9 fL (9.4-12.4); Monocytes # 0.5 K/mcL (0.0-1.3); Monocytes % 9.4 %; Neutrophils # 2.1 K/mcL (1.6-8.9); Platelet Count 156 K/mcL (140-400); Segmented Neutrophils % 41.6 %
[2017-12-06 07:14] LABS: BUN/Creatinine Ratio 11 (6-26); Blood Urea Nitrogen 8 mg/dL (6-20); Calcium 8.9 mg/dL (8.6-10.3); Carbon Dioxide 25 mEq/L (23-29); Chloride 106 mEq/L (98-107); Glucose 90 mg/dL (70-105); Osmolality,Calculated 282 (280-300); Potassium 3.8 mEq/L (3.5-5.1); Sodium 137 mEq/L (136-145); eGFR For African Americans > 60 (> 60); eGFR For Non-African Americans > 60 (> 60)
--- NOTE | 2017-12-06 13:05 | Infectious Disease Progress No ---
Date of Encounter: 12/06/17 Time of Encounter: 13:02 - Assessment and Plan (1) Cat bite of index finger Current Visit: Yes Status: Acute Location: Right hand index finger. Stray cat, vaccination status unknown. Appeared ill: covered in bugs, weak, emaciated. Concern for rabies in the ill cat. Contact the health department. [facility] at [facility] who states that she does not have any record of the animal bite. Nursing filled out another bite form and faxed it per her request yesterday. Will need to initiate Rabies protocol. Give rabies immunoglobulin 20 IU/kg in/ around the wound given intra-op. Give rabies vaccine (Rabavert) at deltoid site on days 0, 3, 7, and 14. Day 0 dose given 12/02/17. Dose #2 given 12/05/17. Dose #3 12/09/17 and dose #4 12/16/17. Had Tetanus vaccine last year per the patient. Qualifiers: Encounter type: initial encounter Qualified Code(s): S61.258A - Open bite of other finger without damage to nail, initial encounter; W55.01XA - Bitten by cat, initial encounter; W55.01XA - Bitten by cat, initial encounter (2) Osteomyelitis of finger of right hand Current Visit: Yes Status: Acute Location: Distal phalanx, second digit right hand. Causative organism unclear. Secondary to cat bite and delayed antibiotic administration. Failed outpatient oral antibiotics - Augmentin and Clindamycin. Status post bedside I & D per the patient's PCP with a large amount of pus. No cultures were obtained. Secondary to cat bite. MRI of the right hand shows soft tissue edema of the 2nd digit compatible with cellulitis and findings worrisome for a small abscess of phlegmon along the volar soft tissues of the distal 2nd digit as well as findings highly suspicious for osteomyelitis of the the distal phalanx of the 2nd digit. Ortho consulted and following. Status post I & D 12/03/17. Intra-op bone changes and pus noted adjacent to the bone. Cultures are negative. ESR 8, CRP <5. Wound care and activity restrictions per the ortho team. Continue Unasyn 3 grams IV Q6H. Duration of treatment depends on the clinical picture. Monitor renal function and dose-adjust antibiotics. Will likely need prolonged IV antibiotic therapy. Discussed with social problems specialist to assist with discharge planning since the patient does not have any insurance and is above the income cutoff to qualify for Medicaid. (3) Cellulitis of finger of right hand Current Visit: Yes Status: Acute Location: Right hand index finger. Causative organism unclear. Secondary to cat bite and delayed antibiotic administration. Antibiotic recommendations as above. (4) Tobacco abuse Current Visit: Yes Status: Acute - Subjective Interval history: Patient seen and examined. Weekend notes reviewed. No acute events noted overnight. Status post I & D of the right index finger 12/03/17. States her finger range of motion is better today. Denies any fevers or chills or rigors. Denies any chest pain, shortness of breath, or cough. Denies any nausea, vomiting, diarrhea, or constipation. States she does not have much of an appetite this morning, but states she normally does not eat breakfast. States she ate a good dinner last night. Denies any abdominal pain, urinary complaints , or appetite changes. Denies pain except as previously mentioned. Denies any oral thrush or new skin lesions. Infect Dis PN-Objective Data - Labs CBC & Chem 7: 12/06/17 06:31 12/06/17 06:31 Labs: Laboratory Results - last 24 hr 12/06/17 12/06/17 06:31 06:31 WBC 5.0 RBC 4.50 Hgb 13.4 Hct 41.0 MCV 91.1 MCH 29.8 MCHC 32.7 RDW 12.0 Plt Count 156 MPV 10.9 Immature Gran % 0.2 Seg Neutrophils % 41.6 Lymphocytes % 43.4 Monocytes % 9.4 Eosinophils % 4.8 Basophils % 0.6 Neutrophils # 2.1 Lymphocytes # 2.2 Monocytes # 0.5 Eosinophils # 0.2 Basophils # 0.0 Sodium 137 Potassium 3.8 Chloride 106 Carbon Dioxide 25 BUN 8 Creatinine 0.73 Est GFR ( Amer) > 60 Est GFR (Non-Af Amer) > 60 BUN/Creatinine Ratio 11 Glucose 90 Calculated Osmolality 282 Calcium 8.9 Cultures: Cultures 12/03/17 13:36 Anaerobic Culture - Preliminary Right Index Finger At this time, no anaerobic growth is present. The culture will be finalized after 5 days of incubation. 12/03/17 13:36 Anaerobic Culture - Preliminary Right Index Finger At this time, no anaerobic growth is present. The culture will be finalized after 5 days of incubation. 12/03/17 13:36 Wound Culture - Final Right Index Finger No growth. 12/03/17 13:36 Wound Culture - Final Right Index Finger No pathogens isolated. 12/01/17 17:54 Blood Culture - Preliminary Peripheral Venipuncture No growth. 12/01/17 17:54 Blood Culture - Preliminary Peripheral Venipuncture No growth. Serology 12/03/17 Range/Units 08:30 Urine Test Negative (Negative) Exam - Constitutional Vitals: Temp Pulse Resp BP Pulse Ox 98.2 F 66 16 110/70 99 12/06/17 11:05 12/06/17 11:05 12/06/17 11:05 12/06/17 11:05 12/06/17 11:05 General appearance: average body habitus, cooperative, no acute distress - Head Head exam: Present: atraumatic, normal inspection, normocephalic - Eye Eye exam: Present: EOMI, normal appearance, PERRL Pupils: Present: normal accommodation - ENT ENT exam: Present: mucous membranes moist - Neck Neck exam: Present: normal inspection - Respiratory Respiratory exam: Present: CTAB. Absent: rales, respiratory distress, rhonchi, wheezes - Cardiovascular Cardiovascular exam: Present: RRR, +S1, +S2 - GI/Abdominal GI/Abdominal exam: Present: normal bowel sounds, soft. Absent: distended, tenderness - Extremities Exam Extremities exam: Present: joint swelling (right index finger DIP.), tenderness (right index finger). Absent: pedal edema - Neurological Exam Neurological exam: Present: alert, oriented X3, no focal deficits - Psychiatric Psychiatric exam: Present: normal affect, normal mood - Skin Skin exam: Present: dry, intact, normal color, warm - VTE Documentation of Mechanical Device: Intermittent pneumatic compression device Consult Discharge Plan - Plan Referrals: Catrina Victor, PAC [Physician Global Sourcing Manager] - 12/08/17 11:30 am - Attending Attestation I examined this patient and my medical decision-making was reviewed with the Resident Physician. I agree with the documented findings, disposition and treatment plan as described except to the extent set forth below.
[2017-12-06] MEDS ORDERED: Lidocaine -MPF 1% 5 ML AMPUL INFILT ONE (14:59)
--- NOTE | 2017-12-06 16:37 | Internal Med Progress Note ---
Date of Encounter: 12/06/17 Time of Encounter: 16:37 - Subjective Interval history: Assessment and Plan (1) Osteomyelitis of finger of right hand X ray report showed Rt 2nd distal phalangeal tuft fracture and concerning for osteomyelitis ID directing antibiotic therapy. Unasyn started at admission Length of therapy and post discharge arrangements for IV antibiotics yet to be determined Blood and wound cultures ESR and CRP S/P surgery Pain well controlled (2) Cat bite with concern for Rabbies Receiving rabbies shots (3) Anxiety Ativan PRN (4) Tobacco abuse Counseled to quit and on nicotine patch - Constitutional Vitals: Temp Pulse Resp BP Pulse Ox 98.8 F 69 16 114/65 98 12/06/17 15:44 12/06/17 15:44 12/06/17 15:44 12/06/17 15:44 12/06/17 15:44 General appearance: Present: A&O X 3, answers questions appropriately - Head Head exam: Present: atraumatic, normocephalic - Eye Eye exam: Present: PERRL, conjuntiva pink, sclera anicteric Pupils: Present: PERRL - Neck Neck exam general surgery: Present: supple, trachea midline. Absent: lymphadenopathy - Respiratory Respiratory exam: Present: CTAB. Absent: accessory muscle use, rales, rhonchi, wheezes - Cardiovascular Cardiovascular exam: Present: RRR, +S1, +S2. Absent: diastolic murmur, gallop, rubs, systolic murmur - GI/Abdominal GI/Abdominal exam: Present: normal bowel sounds, soft, no peritoneal signs. Absent: distended, tenderness - Extremities Exam Extremities exam: Present: warm, radial pulses palpable and symmetrical. Absent : calf tenderness, cyanotic, pedal edema - Neurological Exam Neurological exam: Present: CN II-XII intact, oriented X3, no focal deficits. Absent: pronater drift, facial droop, speech deficit - Skin Skin exam: Present: dry, erythema, intact Additional comments: The fingure has area of blackened skin without any purulent drainage Internal Medicine: Result - Labs CBC & Chem 7: 12/06/17 06:31 12/06/17 06:31 Labs: Short CBC 12/06/17 Range/Units 06:31 WBC 5.0 (4.3-11.1) K/mcL Hgb 13.4 (11.5-15.4) g/dL Hct 41.0 (35.3-44.9) % Plt Count 156 (140-400) K/mcL Neutrophils # 2.1 (1.6-8.9) K/mcL BMP 12/06/17 06:31 Sodium 137 Potassium 3.8 Chloride 106 Carbon Dioxide 25 BUN 8 Creatinine 0.73 Glucose 90 Calcium 8.9 - VTE Documentation of Mechanical Device: Intermittent pneumatic compression device Consult Discharge Plan - Plan Referrals: Catrina Victor, PAC [Physician Contact Agent] - 12/08/17 11:30 am
[2017-12-07] MEDS: Ampicillin/Sulbactam 3,000 MG in 0.9 % Sodium Chloride Mini Bag 100 ML IVPB SCH ×2 (05:00→10:05)
[2017-12-07] MEDS: *HR* Enoxaparin 40 MG/0.4 ML SYRINGE SQ SCH (05:01)
[2017-12-07] MEDS: ALPRAZolam 0.5 MG TABLET PO PRN (10:04)
--- NOTE | 2017-12-07 11:36 | Infectious Disease Progress No ---
Date of Encounter: 12/07/17 Time of Encounter: 11:33 - Assessment and Plan (1) Cat bite of index finger Current Visit: Yes Status: Acute Location: Right hand index finger. Stray cat, vaccination status unknown. Appeared ill: covered in bugs, weak, emaciated. Concern for rabies in the ill cat. Contact the health department. [facility] at [facility] who states that she does not have any record of the animal bite. Nursing filled out another bite form and faxed it per her request yesterday. Will need to initiate Rabies protocol. Give rabies immunoglobulin 20 IU/kg in/ around the wound given intra-op. Give rabies vaccine (Rabavert) at deltoid site on days 0, 3, 7, and 14. Day 0 dose given 12/02/17. Dose #2 given 12/05/17. Dose #3 12/09/17 and dose #4 12/16/17. Had Tetanus vaccine last year per the patient. If the patient is discharged prior to her completing the rabies vaccine series, we will need to make sure the patient is set up as an outpatient to complete the series. Qualifiers: Encounter type: initial encounter Qualified Code(s): S61.258A - Open bite of other finger without damage to nail, initial encounter; W55.01XA - Bitten by cat, initial encounter; W55.01XA - Bitten by cat, initial encounter (2) Osteomyelitis of finger of right hand Current Visit: Yes Status: Acute Location: Distal phalanx, second digit right hand. Causative organism unclear. Secondary to cat bite and delayed antibiotic administration. Failed outpatient oral antibiotics - Augmentin and Clindamycin. Status post bedside I & D per the patient's PCP with a large amount of pus. No cultures were obtained. Secondary to cat bite. MRI of the right hand shows soft tissue edema of the 2nd digit compatible with cellulitis and findings worrisome for a small abscess of phlegmon along the volar soft tissues of the distal 2nd digit as well as findings highly suspicious for osteomyelitis of the the distal phalanx of the 2nd digit. Ortho consulted and following. Status post I & D 12/03/17. Intra-op bone changes and pus noted adjacent to the bone. Cultures are negative. ESR 8, CRP <5. Wound care and activity restrictions per the ortho team. Continue Unasyn 3 grams IV Q6H. Duration of treatment depends on the clinical picture. Monitor renal function and dose-adjust antibiotics. Will likely need prolonged IV antibiotic therapy. Discussed with vp digital marketing social media and crm to assist with discharge planning since the patient does not have any insurance and is above the income cutoff to qualify for Medicaid. Assisted the patient in emailing her paystubs to the financial dealers counselors this morning and advised her to call the bank and have them fax a copy of the last three months of her statements here so we can get them to the financial counselors. Midline placed 12/06/17. Will need weekly CBC, BUN/Cr, ESR, and CRP. Will need weekly midline care per protocol. Follow up with ID 12/23/17 at 1330. (3) Cellulitis of finger of right hand Current Visit: Yes Status: Acute Location: Right hand index finger. Causative organism unclear. Secondary to cat bite and delayed antibiotic administration. Improved. Antibiotic recommendations as above. (4) Tobacco abuse Current Visit: Yes Status: Acute - Subjective Interval history: Patient seen and examined. No acute events noted overnight. Status post I & D of the right index finger 12/03/17. States her finger range of motion is better today. Denies any fevers or chills or rigors. Denies any chest pain, shortness of breath, or cough. Denies any nausea, vomiting, diarrhea, or constipation. States she does not have much of an appetite this morning, but states she normally does not eat breakfast. States she ate a good dinner last night. Denies any abdominal pain, urinary complaints, or appetite changes. Denies pain except as previously mentioned. Denies any oral thrush or new skin lesions. Infect Dis PN-Objective Data - Labs CBC & Chem 7: 12/06/17 06:31 12/06/17 06:31 Cultures: Cultures 12/01/17 17:54 Blood Culture - Final Peripheral Venipuncture No growth. 12/01/17 17:54 Blood Culture - Final Peripheral Venipuncture No growth. 12/03/17 13:36 Anaerobic Culture - Preliminary Right Index Finger At this time, no anaerobic growth is present. The culture will be finalized after 5 days of incubation. 12/03/17 13:36 Anaerobic Culture - Preliminary Right Index Finger At this time, no anaerobic growth is present. The culture will be finalized after 5 days of incubation. 12/03/17 13:36 Wound Culture - Final Right Index Finger No growth. 12/03/17 13:36 Wound Culture - Final Right Index Finger No pathogens isolated. Serology 12/03/17 Range/Units 08:30 Urine Test Negative (Negative) Exam - Constitutional Vitals: Temp Pulse Resp BP Pulse Ox 98.0 F 55 16 95/56 97 12/07/17 07:21 12/07/17 07:21 12/07/17 07:21 12/07/17 07:21 12/07/17 07:21 General appearance: average body habitus, cooperative, no acute distress - Head Head exam: Present: atraumatic, normal inspection, normocephalic - Eye Eye exam: Present: EOMI, normal appearance, PERRL Pupils: Present: normal accommodation - ENT ENT exam: Present: mucous membranes moist - Neck Neck exam: Present: normal inspection - Respiratory Respiratory exam: Present: CTAB. Absent: rales, respiratory distress, rhonchi, wheezes - Cardiovascular Cardiovascular exam: Present: RRR, +S1, +S2 - GI/Abdominal GI/Abdominal exam: Present: normal bowel sounds, soft. Absent: distended, tenderness - Extremities Exam Extremities exam: Present: tenderness (right index finger). Absent: joint swelling, pedal edema Additional comments: Right index finger with area of necrosis to the finger pad. Surgical site with sutures intact and wound edges well-approximated. No drainage, redness, or warmth noted. ROM limited due to pain, but edema improved. - Neurological Exam Neurological exam: Present: alert, oriented X3, no focal deficits - Psychiatric Psychiatric exam: Present: normal affect, normal mood - Skin Skin exam: Present: dry, intact, normal color, warm - VTE Documentation of Mechanical Device: Intermittent pneumatic compression device Consult Discharge Plan - Plan Referrals: Catrina Victor PAC [Physician Talent Management Specialist] - 12/08/17 11:30 am Alejandra Oseguera MD [Partnered Physician] - 12/23/17 1:30 pm - Attending Attestation I examined this patient and my medical decision-making was reviewed with the Resident Physician. I agree with the documented findings, disposition and treatment plan as described except to the extent set forth below. pt refusing to stay in the hospital or be sent to an inpatient facility. 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
--- NOTE | 2017-12-07 12:48 | Orthopedics Progress Note ---
Date of Encounter: 12/07/17 Time of Encounter: 12:15 - Assessment and Plan (1) Osteomyelitis of finger of right hand Current Visit: Yes Status: Acute Continue IV abx for osteomyelitis per ID team. Current plan Unasyn likely 6 weeks. Patient getting set up for placement to SNF for continued IV abx as she does not have insurance for home health. Continue rabies vaccine protocol. Elevate hand, ROM as tolerated. Continue to wash incision 2-3x daily until fully healed. Keep sutures covered. Pain control per hospitalist. Will follow up in [facility] office 12/15/17. Appt card will be faxed to floor Subjective Principal diagnosis: POD#4 s/p right index finger I&D 12/03/17 Interval history: Patient doing well today with no complaints other than continued pain to distal IF but this is improving. She states she has been working on her ROM and this continues to improve every day as well. Continues to have numbness to distal IF. States she has not had any drainage from the incision since the packing was removed. Denies any new s/s, denies fevers, N/V. Objective Vital signs: Vital Signs Temp Pulse Resp BP Pulse Ox 12/07/17 12:20 98.0 F 80 16 128/75 94 12/07/17 07:21 98.0 F 55 16 95/56 97 12/07/17 03:43 98.1 F 66 16 111/72 100 12/06/17 23:17 98.2 F 66 16 111/74 99 12/06/17 19:20 98.1 F 69 16 111/72 100 12/06/17 15:44 98.8 F 69 16 114/65 98 Intake and Output 12/06/17 12/07/17 12/07/17 23:59 07:59 15:59 Intake Total 200 / 200 0 / 0 Balance 200 / 200 0 / 0 Intake: IV Fluids 200 / 200 0 / 0 Unasyn 3,000 MG In 0.9 % Sodium 200 / 200 0 / 0 Chloride (Mini-Bag +) 100 ML @ 200 mls/hr IVPB Q6H [facility] Rx#: [id number] Other: # Voids 2 Weight 57.153 kg Patient Weight 12/07/17 23:59 Weight 57.153 kg Incision: healing (Incision to right IF healing appropriately/closed, sutures intact. No active drainage. Mild swelling and erythema to IF distal phalanx as well as moderate tenderness to palpation. Improved ROM of IF PIPJ, restricted ROM of DIPJ, decreased sensation to distal IF tip otherwise grossly NV intact.) - Labs CBC & BMP: 12/06/17 06:31 12/06/17 06:31 - VTE Documentation of Mechanical Device: Intermittent pneumatic compression device Consult Discharge Plan - Plan Referrals: Catrina Victor PAC [Physician Inspector Elevators] - 12/08/17 11:30 am Alejandra Oseguera MD [Partnered Physician] - 12/23/17 1:30 pm
[2017-12-07 16:07] VITALS: BP 131/86
--- NOTE | 2017-12-07 16:55 | Discharge Summary ---
Orders not resulted at time of discharge: Pending orders 12/03/17 13:36 Culture,Anaerobic [RM] Routine Culture,Anaerobic [RM] Routine Date of Encounter: 12/07/17 Time of Encounter: 16:49 - Discharge Diagnosis (1) Osteomyelitis of finger of right hand Priority: Primary Status: Acute Comments: 1 patient [facility] or be sent to inpatient facility she wants to go home on oral antibiotics. I explained that Appropriate care for osteomyelitis in that she could possibly lose her finger. However she has states that Dr. Uribe with infectious disease stated she could leave on oral antibiotics I informed her that I reviewed the records and he also advised her not to leave and to receive IV antibiotics however she insists on leaving. Infectious disease recommends Augmentin 875 twice a day for 30 days. Patient requests to leave AMA she will be discharged on Augmentin 875 twice a day 30 days and will need to follow up with PCP (2) Cat bite of index finger Priority: Primary Status: Acute Comments: Patient was bitten by a feral cat-unknown immunization status. Patient was initiated on rabies vaccines she requires 2 more doses patient is signing out AGAINST MEDICAL ADVICE advised patient to follow-up with PCP to receive dose final 2 doses which are scheduled for 12/09/17 and 12/16/17 Qualifiers: Encounter type: initial encounter Qualified Code(s): S61.258A - Open bite of other finger without damage to nail, initial encounter; W55.01XA - Bitten by cat, initial encounter; W55.01XA - Bitten by cat, initial encounter (3) Cellulitis of finger of right hand Priority: Primary Status: Acute Comments: Patient signing out AGAINST MEDICAL ADVICE will continue with Augmentin per ID recommendations (4) Tobacco abuse Priority: Secondary Status: Acute Comments: Patient frequently leaving the floor to smoke -educated patient on how smoking hinders the healing process patient verbalized understanding however declines any help at this time. Hospital course: Ms. Canales is a 36 year old female past medical history she was bitten on her right index finger on 11/17/2017 patient did receive outpatient treatment at outlying facility where she did receive IV antibiotics and was sent home on oral antibiotics she did follow-up with primary care doctor who tried IND her right index finger approximately 3 times however there was no improvement and it was worsening. She presented to the ER at [facility] orthopedics did evaluate the finger and was found to have osteomyelitis PIC line was placed blood cultures obtained infectious disease was consult and patient was initiated on Unasyn. According to ID patient will need possibly 6 weeks of IV antibiotics requesting possible placement to [facility] in order to receive antibiotic course. Patient does not have any insurance misha pending per social contact worker. Patient has left the floor several times to smoke advised patient not to leave the floor. She is requesting to sign out AGAINST MEDICAL ADVICE. I explained that Appropriate care for osteomyelitis is to receive IV antibiotics for approximately 6 weeks. Also explained that she could possibly lose her finger, become septic, suffer from rabies and possibly . However she has states that Dr. Uribe with infectious disease stated she could leave on oral antibiotics I informed her that I reviewed the records it appears that he also advised her not to leave and to receive IV antibiotics however she insists on leaving. Infectious disease would recommend Augmentin 875 twice a day for 30 days. Patient requests to leave AMA she will be discharged on Augmentin 875 twice a day 30 days and will need to follow up with PCP - Time Spent with Patient Total time spent providing and/or coordinating discharge services: - Discharge Medications Prescriptions: Amoxicillin/Clavulanate [Augmentin] 875 mg PO BIDWM 38 Days #76 tablet Home Medications: Clindamycin HCl [Cleocin HCl] 300 mg PO Q8H 12/01/17 [History] HYDROcodone/Acet 5/325 mg [[place] 5-325 mg] 1 tab PO Q6H PRN 12/01/17 [History] Amoxicillin/Clavulanate [Augmentin] 875 mg PO BIDWM 38 Days #76 tablet 12/07/17 [Rx] Allergies/Adverse Reactions: 3 Allergy/AdvReac Type Severity Reaction Status Date / Time No Known Allergies Allergy Verified 12/01/17 15:05 Date of admission: 12/01/17 15:58 Primary care physician: Jayesh Florez MD Consults: 12/06/17 08:28 Consult to Infectious Diseases [CONS] Routine Consulting Provider: [facility] Reason for Consult: Right index finger OM Time Notified: 08:28 Call Completed: Yes 12/06/17 14:59 Consult to Invasive Line Access Team [CONS] Routine Reason for Consult: Picc Line Insertion Line Type: PICC PICC line indications: [facility] Med/Antibiotic Time Notified: 14:59 Call Completed: Yes 12/06/17 15:11 Consult to Acting Manager [CONS] Routine Reason for SW Consult: patient has no insurance, social needs 12/06/17 15:46 Consult to Invasive Line Access Team [CONS] Routine Reason for Consult: home atb Line Type: Midline Discharging clinician: Octavia Perez - Constitutional Vitals: Temp Pulse Resp BP Pulse Ox 98.0 F 76 16 131/86 98 12/07/17 16:06 12/07/17 16:06 12/07/17 16:06 12/07/17 16:06 12/07/17 16:06 General appearance: Present: A&O X 3, answers questions appropriately - Head Head exam: Present: atraumatic, normocephalic - Eye Eye exam: Present: PERRL, conjuntiva pink, sclera anicteric Pupils: Present: PERRL - Neck Neck exam general surgery: Present: supple, trachea midline. Absent: lymphadenopathy - Respiratory Respiratory exam: Present: CTAB. Absent: accessory muscle use, rales, rhonchi, wheezes - Cardiovascular Cardiovascular exam: Present: RRR, +S1, +S2. Absent: diastolic murmur, gallop, rubs, systolic murmur - GI/Abdominal GI/Abdominal exam: Present: normal bowel sounds, soft, no peritoneal signs. Absent: distended, tenderness - Extremities Exam Extremities exam: Present: warm, radial pulses palpable and symmetrical. Absent : calf tenderness, cyanotic, pedal edema - Neurological Exam Neurological exam: Present: CN II-XII intact, oriented X3, no focal deficits. Absent: pronater drift, facial droop, speech deficit - Skin Skin exam: Present: dry, intact - Patient Status Disposition: Left Against Medical Advice Condition: Good - Discharge Instructions Follow Up With: Catrina Victor PAC [Physician Wood Polisher] - 12/08/17 11:30 am Alejandra Oseguera MD [Partnered Physician] - 12/23/17 1:30 pm - VTE Documentation of Mechanical Device: Intermittent pneumatic compression device
[2017-12-09] MEDS ORDERED: Rabies Vaccine 2.5 UNIT VIAL IM ONE (11:40)
[2017-12-16] MEDS ORDERED: Rabies Vaccine 2.5 UNIT VIAL IM ONE (11:42)
== END 2017-12-07 16:00 | disposition left against medical advice (07) | DRG 513 ==
LOC: EMEROO 14:08 → 3NENU 15:58 → 3BNU 12-06 09:14
PROVIDERS: ADMIT Family Medicine; ATTEND Internal Medicine